=== PATIENT | female | born 1950 | race Caucasian/White ===

== ENCOUNTER 2021-03-27 14:49 | Outpatient (REF) | payer OTHER, MEDICARE, SELFPAY | END 2021-03-27 14:50 | disposition home or self-care (01) | LOC: HO.BBR 14:49 | PROVIDERS: PCP Internal Medicine; Visit Provider Internal Medicine Hematology & Oncology | DX: Z13.89 Encounter for screening for other disorder (principal) ==

== ENCOUNTER 2021-06-27 14:53 | Outpatient (REF) | payer MEDICARE, OTHER, SELFPAY | END 2021-06-27 14:54 | disposition home or self-care (01) | LOC: HO.BBR 14:53 | PROVIDERS: PCP Internal Medicine; Visit Provider Internal Medicine Hematology & Oncology | DX: Z13.89 Encounter for screening for other disorder (principal) ==

== ENCOUNTER 2024-05-04 13:03 | Outpatient (REF) | payer MEDICARE, OTHER, SELFPAY | END 2024-05-04 13:04 | disposition home or self-care (01) | LOC: HO.BBR 13:03 | PROVIDERS: PCP Internal Medicine; Visit Provider Nurse Practitioner Adult Health | DX: Z13.89 Encounter for screening for other disorder (principal) ==

== ENCOUNTER 2024-11-19 14:02 | Outpatient (REF) | payer MEDICARE, OTHER, SELFPAY | END 2024-11-19 14:03 | disposition home or self-care (01) | LOC: HO.BBR 14:02 | PROVIDERS: PCP Internal Medicine; Visit Provider Nurse Practitioner Adult Health | DX: Z13.89 Encounter for screening for other disorder (principal) ==

== ENCOUNTER 2025-02-25 13:49 | Outpatient (REF) | payer MEDICARE, OTHER, SELFPAY ==
--- OUTSIDE RECORDS SUMMARY | 2023-07-15 10:00 | XMS_ITS | Continuity of Care Document ---
Author Organization [facility] Address [address] [place] [address] Phone Care Team Providers Care Rotary Shear Operator Name Role Phone Asad DYER FACS RVT Heri BLOOM Unavailable Unavailable Allergies, Adverse Reactions, Alerts Substance Reaction Status Criticality No Known Allergies Active No Inform ation Medications Medication Instructions Dosage Effective Dates (start - stop) Status Comments Eliquis 5 mg tablet take 1 tablet by ora l route 2 times every day 5 MG - Active tramadol 50 mg tablet - Acti ve famotidine 40 mg tablet - Ac tive methylphenidate ER 27 mg tablet,extended release 24 hr - Active pramipexole 0.5 mg tablet - Active carbidopa 25 mg-levodopa 100 mg tablet - Active zolpidem 10 mg tablet - Acti ve amlodipine 5 mg tablet - Act bethanie Procedures Procedure Date Office/Outpt E&M Established 15 Mins Jun No Charge For Services Duplex Scan-extrem Veins; Uni/ Phleb Veins - Extrem - To Endovenous Laser, 1st Vein Endovenous Laser, 1st Vein Phleb Veins - Extrem - To Duplex Scan-extrem Veins; Uni/ 23 Endovenous Laser, 1st Vein Endovenous Laser, 1st Vein Endovenous laser vein addon Office/Outpt E&M Established 15 Mins Aug Duplex Scan-extrem Veins; Comp Advance Directives Directive Yes / No Effective Date File Name No Information Encounters Encounter Description Practice Location Reason(s) For Visit Diagnoses Date Provider Providers Copied on Encounter Office/Outpt E&M Established 15 Mins [facility], [address] [place] [address] [address] [place], [id number], [place] tel:[phone] [facility] Chronic venous hypertension (idiopathic) with other complications of bilateral lower extremity 3 Asad Hardin. [address] [place] [address], [place], [address], [place]. tel:[phone] Referring Provider: Rangel Aguilar MD S, [address] [place] [address], [address]. tel:[phone] [facility], [address] [place] [address] Dr Leal [address]Jonny [place], [id number], [place] tel:[phone] [facility] No Information 3 Asad Hardin. [address] [place] [address], [place], [address], [place]. tel:[phone] Referring Provider: Rangel Aguilar MD S, [address] [place] [address], [address]. tel:[phone] [facility], [address] [place] [address] Dr Leal [address]Jonny [place], [id number], [place] tel:[phone] [facility] Encounter for follow-up examination after completed treatment for conditions other than malignant neVaricose veins of left lower extremity with pain 3 Asad Hardin. [address] [place] [address], [place], [address], [place]. tel:[phone] Referring Provider: Rangel Aguilar MD S, [address] [place] [address], [address]. tel:[phone] [facility] MD GOLDMAN, [address] [place] [address] Dr Leal 1000[address] 1000Jonny [place], [id number], [place] tel:[phone] [facility] [place] [facility] [place] Varicose veins of left lower extremity with other complications Oct-0 3 Annita Hull. [address] [place] [address], [place], [place], [id number], [place]. tel:[phone] Referring Provider: Rangel Aguilar MD S, [address] [place] [address], [address]. tel:[phone] [facility] MD GOLDMAN, [address] [place] [address] Dr Leal [address], [place], [id number], [place] tel:[phone] [facility] [place] Varicose veins of left lower extremities w oth complications Sep-2 3 Asad DYER FACS T MERLE Hardin. [address] [place] [address], [place], [address], [place]. tel:[phone] Referring Provider: Rangel Aguilar MD S, [address] [place] [address], [address]. tel:[phone] [facility] MD GOLDMAN, [address] [place] [address] Dr Leal 1000[address] 1000Jonny [place], [id number], [place] tel:[phone] [facility] [place] Varicose veins of left lower extremities w ot complications Sep-2 3 Asad DYER FACS RVT MERLE Hardin. [address] [place] [address], [place], [address], [place]. tel:[phone] Referring Provider: Rangel Aguilar MD S, [address] [place] [address], [address]. tel:[phone] [facility] MD GOLDMAN, [address] [place] [address] [address], [place], [id number], [place] tel:[phone] [facility] [place] No Information 3 Asad Hardin. [address] [place] [address], [place], [address], [place]. tel:[phone] Referring Provider: Rangel Aguilar MD S, [address] [place] [address], [address]. tel:[phone] [facility], [address] [place] [address] [address], [place], [id number], [place] tel:[phone] [facility] [place] Varicose veins of right low extrm w oth complications 3 Annita Hull. [address] [place] [address], [place], [place], [id number], [place]. tel:[phone] Referring Provider: Rangel Aguilar MD S, [address] [place] [address], [facility] tel:[phone] [facility], [address] [place] [address] [address], [place], [id number], [place] tel:[phone] [facility] [place] Encntr for f/u exam aft trtmt for cond oth than malig neoplmVaricose veins of right lower extremities with pain 3 Asad Hardin. [address] [place] [address], [place], [address], [place]. tel:[phone] Referring Provider: Rangel Aguilar MD S, [address] [place] [address], [address]. tel:[phone] [facility], [address] [place] [address] [address]Jonny [place], [id number], [place] tel:[phone] [facility] [place] Varicose veins of right low extrm w oth complications 3 Asad ORRPage Hardin. [address] [place] [address], [place], [address], [place]. tel:[phone] Referring Provider: Rangel Aguilar MD S, [address] [place] [address], [address]. tel:[phone] [facility], [address] [place] [address] Dr Leal [address], [place], [id number], [place] tel:[phone] [facility] [place] Varicose veins of right low extrm w oth complications 3 Asad DYER FACS Page Hardin. [address] [place] [address], [place], [address], [place]. tel:[phone] Referring Provider: Rangel Aguilar MD S, [address] [place] [address], [facility] tel:[phone] Office/Outpt E&M Established 15 Mins [facility], [address] [place] [address] [address], [place], [id number], [place] tel:[phone] [facility] [place] Body mass index (BMI) 26.0-26.9, adultVenous insufficiency (chronic) (peripheral) 3 Asad DYER FACS Page Hardin. [address] [place] [address], [place], [address], [place]. tel:[phone] Referring Provider: Rangel Aguilar MD S, [address] [place] [address], [address]. tel:[phone] [facility], [address] [place] [address] [address], [place], [id number], [place] tel:[phone] [facility] [place] Varicose veins of bilateral lower extremities with painOther specified soft tissue disorders 2 Asad DYER FACS Page Hardin. [address] [place] [address], [place] [address], [place], [address], [place]. tel:[phone] Referring Provider: Rangel Aguilar MD S, [address] [facility], [place], [address]. tel:[phone] Family History Family Member Type Diagnosis Age At Onset No Information Payers Payer name Insurance type Covered libertarian ID Authorkristin marmolejo(s) Medicare PIYUSH RODRIGUEZ [id number] [facility] [id number] Social History Type Description Quantity Date Captured Comments Alcohol Use Details Caffeine Use Details Unknown Tobacco Use Status Never smoked tobacco 2022 Smoking Status Never smoker Non-Smoking Tobacco Use Details : No Details Available : No Details Available Sex Female Chief Complaint And Reason For Visit No Information Reason For Referral Reason For Referral No Information Plan Of Treatment Date Type Action Status Goal Tobacco cessation counseling completed History Of Present Illness Encounter Date Complaint History Of Prese nt Illness No Information Functional Status Date Functional Assessmen t No Information Instructions Date Instruction Additional Infor mation Continue compression stocking us e Related to Chrn Vns Hyprtnsn w/Compl (Pain Edema Swelling); BILAT Patient education booklet given Related to Chrn Vns Hyprtnsn w/Compl (Pain Edema Swelling); BILAT Dietary needs education Related to Body mass index [BMI] 26.0-26.9, adult Assessments Type Assessment Date assessment Chronic venous hyper tension (idiopathic) with other complications of bilateral lower extremity Patient Care Teams Name Effective Dates (start - stop) Status Members No Information
--- OUTSIDE RECORDS SUMMARY | 2025-02-25 13:54 | XMS_ITS | Patient Health Record ---
Author [facility] Address [address] [address] Care Team Providers Care Pre Press Operator Name Role Phone Rangel Hendricks MD Primary Care Provider Adal Jefferson Unavailable [phone] Allergies No Known Allergies Reason For Referral No Information Medications Medication SIG (Take, Route, Frequency, Duration) Notes Start Date End Date Status Vivelle Not-Taking Progesterone Milled as directed Not-Taking traMADol HCl 50 MG 1 tablet as needed Orally Once a day Active Pramipexole Dihydrochloride 0.5 MG 1 tablet Orally Once a day Active Zolpidem Tartrate Ac tive Famotidine 40 MG 1 tablet Orally Once a day Active Mirapex 1 MG 1 tablet Orally Thre e times a day; Duration: 30 day(s) Not-Taking Ciprofloxacin-dexAMETHasone 0.3-0.1 % Otic; Duration: 7 Days Active Losartan Potassium 50 MG 1 tablet Orally Once a day Active Social History Tobacco Use: Social History Observation Description Date Details (start date - stop date) Former Smoker NA - NA Tobacco Use/Smoking Question Answer Notes Are you a: former smoker Additional Findings: Tobacco Non-User Current no n-smoker Tobacco use other than smoking: Question Answer Notes Are you an other tobacco user? No Problems Problem Type SNOMED Code ICD Code Onset Dates Problem Status W/U Status Risk Notes Problem Plantar wart (B07.0) Active confirmed Vital Signs Height 5ft 6in in 06/25/2024 Weight 165 lbs 06/25/2024 BMI 26.63 kg/m2 06/25/2024 Procedures Procedure Date Ordered Date Performed Result Body Sit e 06389-Ezvu Destruction, 1-14 05/28/2024 N/A 38824-Vfkx Destruction, 09-0806/11/2024 N/A 16207-Proo Destruction, 09-0806/25/2024 N/A Encounters Encounter Location Date Provider Diagnosis [address] [address] 05/28/2024 Adal Wen Right foot pain M79.671 and Plantar wart B07.[address] [address] 06/11/2024 Adal Behzad Right foot pain M79.671 and Plantar wart B07.[address] [address] 06/25/2024 Adal Behzad Right foot pain M79.671 and Plantar wart B07.[address] [address] 05/28/2024 Adal Behzad [address] [address] 05/29/2024 Adal Behzad Assessments Encounter Date Diagnosis (ICD Code) Assessment Notes Treatment Notes Treatment Clinical Notes Section Notes 05/28/2024 Right foot pain (ICD-10 - M79.671) 06/11/2024 Plantar wart (ICD-10 - B07.0) 06/11/2024 Right foot pain (ICD-10 - M79.671) 06/25/2024 Right foot pain (ICD-10 - M79.671) 05/28/2024 Plantar wart (ICD-10 - B07.0) 06/25/2024 Plantar wart (ICD-10 - B07.0) Plan Of Treatment Pending Test Test Name Order Date 63211-Zafb Destruction, 09-0805/28/2024 31779-Ebij Destruction, 09-0806/11/2024 50959-Rkzw Destruction, 09-0806/25/2024 Insurance Providers Payer Name Payer Address Payer Phone Subscriber Number Group Number Insured Name Patient Relationship to Insured Coverage Start Date Coverage End Date Medicare National [employer] [address] [place] [address] [id number] Sylvia Celis Self - patient is the insured [facility] [address] [place] [address] [phone] [id number] Olu Celist Self - patient is the insured Medical (General) History Medical History History ICD Code asthma back, hip, knee pain cataracts sciatica chicken pox measles mumps headaches/migraines Warts Surgical History Surgery Date(Month/Year) rotator cuff tear repair ovarian surgery ear surgery knee surgery appendectomy
--- OUTSIDE RECORDS SUMMARY | 2025-02-25 13:54 | XMS_ITS | Patient Health Record ---
Author Organization [facility] Address [address] [place] [address] Care Team Providers Care Gyn Physician Name Role Phone FLY MANUEL M.D. Primary Care Provider Liz Moses Unavailable [phone] Allergies No Known Allergies Reason For Referral No Information Medications Medication SIG (Take, Route, Frequency, Duration) Notes Start Date End Date Status traMADol HCl 50 MG 1-3 tablet as needed Orally PRN RLS Active Pramipexole Dihydrochloride 0.5 MG Oral; Duration: 90 Active amLODIPine Besylate 5 MG 1 tablet Orally Once a day Active Famotidine 40 MG Oral; Duration: 30 Active Social History Tobacco Use: Social History Observation Description Date Details (start date - stop date) Former Smoker NA - NA Tobacco Use/Smoking Question Answer Notes Are you a former smoker How long has it been since you last smoked? > 10 years Alcohol Screen (Audit-C) Question Answer Notes Did you have a drink contain ing alcohol in the past year? Yes How often did you have a dri nk containing alcohol in the past year? 4 or more times a week (4 points) How many drinks did you have on a typical day when you were drinking in the past year? 1 or 2 drinks (0 point) Points 4 Interpretation Positive Problems Problem Type SNOMED Code ICD Code Onset Dates Problem Status W/U Status Risk Notes Problem Menopause (747330446) Menopausal and female climacteric states (N95.1) Active confirmed Problem Hemochromatosis (891965344) Other hemochromatosis (E83.118) Active confirmed Problem Phlebitis and thrombophlebitis of unspecified site (I80.9) Active confirmed Problem Noninflammatory disorder of the female genital organs (3286114) Other specified noninflammatory disorders of cervix uteri (N88.8) Active confirmed Problem Menopause (847477573) Menopausal and female climacteric states (N95.1) Active confirmed Problem Menopausal symptom (58930000) Symptomatic menopausal or female climacteric states (627.2) Active confirmed Major Problem Gynecological examination normal (585749564143026) Routine gynecological examination (V72.31) Active confirmed Problem Screening for malignant neoplasm of colon (602251751) Special screening for malignant neoplasms, colon (V76.51) Active confirmed Major Problem Hemochromatosis (907330761) Other hemochromatosis (275.03) Active confirmed Major Plan Of Treatment Pending Test Test Name Order Date MAMMOGRAM, SCREENING 09/19/2020 MAMMOGRAM, SCREENING 01/01/2022 MAMMOGRAM, SCREENING 11/24/2014 MAMMOGRAM, SCREENING 04/02/2016 Urinalysis 04/02/2016 THIN PREP,HPV,GINO IF HPV+ (>29YR)(DIAG) 09/23/2018 BONE DENSITY 09/19/2020 MM Digital Mammo Screening 09/19/2020 MM Digital Mammo Screening 01/01/2022 Insurance Providers Payer Name Payer Address Payer Phone Subscriber Number Group Number Insured Name Patient Relationship to Insured Coverage Start Date Coverage End Date MEDICARE [address] [place], [place] [id number] EVA DURANT Self - patient is the insured [facility] [address] [place] [address] [id number] EVA DURANT Self - patient is the insured Medical (General) History Medical History History ICD Code Menopausal and female climacteric states N95.1 Hormone replacement therapy (postmenopau amarilis) Z79.890 Unspecified abnormal cytological finding s in specimens from cervix uteri R87.619 Abnormal findings on diagnostic imaging of other specified body structures R93.8 Hormone replacement therapy (postmenopau amarilis) Z79.890 Polyp of corpus uteri N84.0 Acute sinusitis, unspecified J01.90 Other specified noninflammatory disorder s of cervix uteri N88.8 Phlebitis and thrombophlebitis of unspec ified site I80.9 Other hemochromatosis E83.118 Surgical History Surgery Date(Month/Year) Colonoscopy Left Tibia Fracture ECC, Hysteroscopy Truclear Polypectomy, D&C 06/2016 Hospitalization History Reason Date(Month/Year) 2 Vaginal Deliveries See Surgical Hx
== END 2025-02-25 13:50 | disposition home or self-care (01) ==
LOC: HO.BBR 13:49
PROVIDERS: PCP Internal Medicine; Visit Provider Nurse Practitioner Adult Health
DX: Z13.89 Encounter for screening for other disorder (principal)

== ENCOUNTER 2025-05-31 11:55 | Outpatient (REF) | payer MEDICARE, OTHER, SELFPAY ==
--- OUTSIDE RECORDS SUMMARY | 2025-01-04 07:40 | XMS_ITS ---
Author Organization [facility] Address [address] [place], [place] [id number] Care Team Providers Care Oncology Consultant Name Role Phone FLY MANUEL Primary Care Provider [phone] MELI TOBAR [phone] REASON FOR VISIT PG/27/barking cough Encounters Encounter Location Date Provider Diagnosis [address] [address] 01/04/2025 MELI TOBAR PLAN OF TREATMENT Next Appt Details Provider Name:NURSING CAREN Kemp, 06/06/2026 01:00:00 PM, [address] [place] [address], [phone], Provider Name:FLY Goa, 06/06/2026 01:30:00 PM, [address] [place] [address], [phone],
--- OUTSIDE RECORDS SUMMARY | 2025-05-19 11:00 | XMS_ITS ---
Author Organization [facility] Address [address] [place], [place] [id number] Care Team Providers Care Home Appliances Mechanic Name Role Phone FLY MANUEL Primary Care Provider URI EDMONDSON [phone] REASON FOR VISIT N/27/AWV Encounters Encounter Location Date Provider Diagnosis [address] [address] 05/19/2025 NURSING DELVIS PLAN OF TREATMENT Next Appt Details Provider Name:URI Kemp, 06/06/2026 01:00:00 PM, [address] [place] [address], [phone], Provider Name:FLY Gao, 06/06/2026 01:30:00 PM, [address] [place] [address], [phone],
--- OUTSIDE RECORDS SUMMARY | 2025-05-19 11:30 | XMS_ITS ---
Author Organization [facility] Address [address] [place], [place] [id number] Care Team Providers Care Feedmobile Driver Name Role Phone FLY MANUEL Primary Care Provider [phone] ALLERGIES Allergen (clinical drug ingredient) Drug/Non Drug Allergy documented on EMR Reaction Allergy Type Onset Date Status amoxicillin Amoxicillin diarrhea Drug Allergy Act bethanie REASON FOR VISIT AWV, Patient denies: Covid19 symptoms, known exposure, pending results MEDICATIONS Medication SIG (Take, Route, Frequency, Duration) Notes Start Date End Date Status Montelukast Sodium 10 MG 1 tablet Orally Once a day for 30 day(s) 05/19/2025 Active Losartan Potassium 50 MG 1 tablet orally Once a day Active Famotidine 40 MG 1 tablet orally Once a day Active traMADol HCl 50 MG 1 tab(s) orally TID Active Pramipexole Dihydrochloride 0.5 MG 2 tab Orally Once a day as needed for restless leg Active Budesonide-Formoterol Fumarate 80-4.5 MCG/ACT as directed Inhalation Active Zolpidem Tartrate 10 MG 1/2 - 1 tab Oral ly at bedtime 10/02/2024 Active SOCIAL HISTORY Tobacco Use: Social History Observation Description Date Details (start date - stop date) Former Smoker NA - NA Sex Assigned At : Social History Observation Description Sex Assigned At Unknown Smoking Question Answer Notes Are you a: former smoker Section Notes: quit smoking age mid 20's VITAL SIGNS Height 65.25 in 05/19/2025 Weight 168.2 lbs 05/19/2025 Blood pressure systolic 134 mm Hg 05/19/20 25 Blood pressure diastolic 76 mm Hg 025 BMI 27.77 kg/m2 05/19/2025 Encounters Encounter Location Date Provider Diagnosis [facility] [address] [place] [address] 05/19/2025 FLY MANUEL Essential (primary) hypertension I10 ; Post-nasal drip R09.82 ; Left wrist pain M25.532 ; Osteoarthritis M19.90 ; Restless leg syndrome G25.81 and Insomnia G47.00 ASSESSMENTS Encounter Date Diagnosis Assessment Notes Treatment Notes Treatment Clinical Notes Section Notes 05/19/2025 Essential (primary) hypertension (ICD-10 - I10) bp is good cojt rx..low salt diet and exercise 05/19/2025 Post-nasal drip (ICD-10 - R09.82) rx sent..call INB 1 month 05/19/2025 Left wrist pain (ICD-10 - M25.532) check xray and go from there 05/19/2025 Osteoarthritis (ICD-10 - M19.90) 05/19/2025 Restless leg syndrome (ICD-10 - G25.81) 05/19/2025 Insomnia (ICD-10 - G47.00) cont rx.. clal if issues 05/19/2025 Other rev;d sbe and safety. PLAN OF TREATMENT Medication Medication Name Sig Start Date Stop Date Notes Montelukast Sodium 10 MG 1 tablet Orally Once a day for 30 day(s) 05/19/2025 Losartan Potassium 50 MG 1 tablet orally Once a day Famotidine 40 MG 1 tablet orally Once a day traMADol HCl 50 MG 1 tab(s) orally TID Pramipexole Dihydrochloride 0.5 MG 2 tab Orally Once a day as needed for restless leg Budesonide-Formoterol Fumara te 80-4.5 MCG/ACT as directed Inhalation Zolpidem Tartrate 10 MG 1/2 - 1 tab Oral ly at bedtime 10/02/2024 Treatment Notes Assessment Notes Essential (primary) hypertension bp is g ood cojt rx..low salt diet and exercise Post-nasal drip rx sent..call INB 1 month Left wrist pain check xray and go fr om there Insomnia cont rx.. clal if is sues Other rev;d sbe and safety . Next Appt Details Follow Up: 1 Year 45 min cpx ,,,labs today..flu shot and pcv 20 today, Reason: Provider Name:NURSING CAREN Kemp 06/06/2026 01:00:00 PM, [address] [place], [address], Provider Name:FLY Gao, 06/06/2026 01:30:00 PM, [address] [place], [address], Progress Notes * Examination Category Sub-Category Detail Notes Category Not es General Examination HEENT: nose is boggy Neck: no mass, no carotid bruit Heart: RSR, normal S1S2, no murmurs, clicks or rubs Lungs: clear to auscultatio n, no wheezes Abdomen: soft, non tender/non distended, no masses palpated, no hepatosplenomegaly Extremities: no clubbing , cyanos is, or edema General Appearance no apparent distress , pleasant Skin: normal, no rash, monica ign appearing moles Neuro DTRs 1-2+ in all 4 e xtremities, CN 2-12 intact Peripheral pulses: 2+, bilaterally syme trical Lymphatics No supraclavicular n odes, no cervical adenopathy Psych: affect normal Musculoskeletal left wrist OA change s History and Physical Notes * HPI (History of Present Illness) Category Sub-Category Detail Notes Category Not es General here for eval..left wrist pain for 3-4 weeks..no trauma..hurt swith mvmt..no redness or swelling....for 2-3 months ++ post nasal drip and constant need t clear her throat..chest feels fine..no sob or wheeze.. wants a bp check today Depression Screening PHQ-2 (2015 Edition) Little interest or pleasure in doing things?: Not at all Feeling down, depressed, or hopeless?: N ot at all Total Score: 0
--- OUTSIDE RECORDS SUMMARY | 2025-05-19 12:00 | XMS_ITS ---
Author Organization [facility] Address [address] [place], [place] [address] Care Team Providers Care Chief Medical Technologist Name Role Phone FLY MANUEL Primary Care Provider URI EDMONDSON [phone] REASON FOR VISIT N/27/flu shot and pcv 20 today IMMUNIZATIONS Vaccine Route Administration Date Status Comme nts Influenza, Fluzone HD 65+ IM Intramuscular 05/19/2025 Admi nistered [id number] IM Intramuscular 05/19/2025 Administered Encounters Encounter Location Date Provider Diagnosis [address] [address] 05/19/2025 NURSING [facility] Encounter for immunization Z23 ASSESSMENTS Encounter Date Diagnosis Assessment Notes Treatment Notes Treatment Clinical Notes Section Notes 05/19/2025 Encounter for immunization (ICD-10 - Z23) HD Influenza vaccine administered. Patient counseled and VIS sheet given. PLAN OF TREATMENT Treatment Notes Assessment Notes Encounter for immunization HD Influenza vaccine administered. Patient counseled and VIS sheet given. Next Appt Details Follow Up: prn, Reason: Provider Name:URI Kemp, 06/06/2026 01:00:00 PM, [address] [place] [address], [phone], Provider Name:FLY Gao, 06/06/2026 01:30:00 PM, [address] [place] [address], [phone],
--- OUTSIDE RECORDS SUMMARY | 2025-05-20 05:36 | XMS_ITS ---
Author Organization [facility] Address [address] [place], [place] [address] Care Team Providers Care Waxer Tender Name Role Phone FLY MANUEL Primary Care Provider [phone] Encounters Encounter Location Date Provider Diagnosis [address] [address] 05/20/2025 FLY MANUEL PLAN OF TREATMENT Next Appt Details Provider Name:NURSING CAREN Kemp, 06/06/2026 01:00:00 PM, [address] [place] [address], [phone], Provider Name:FLY Gao, 06/06/2026 01:30:00 PM, [address] [place] [address], [phone],
--- OUTSIDE RECORDS SUMMARY | 2025-05-31 14:27 | XMS_ITS | Patient Health Record ---
Author Organization [facility] Address [address] [place] [address] Care Team Providers Care Ampoule Inspector Name Role Phone Rangel Hendricks MD Primary Care Provider UnavailAdal Keith Unavailable [phone] Allergies No Known Allergies Reason For Referral [...] W/U Status Risk Notes Problem Plantar wart (77790106) Plantar wart (B07.0) Active confirmed Vital Signs Height 5ft 6in in 06/25/2024 Weight 165 lbs 06/25/2024 BMI 26.63 kg/m2 06/25/2024 Procedures Procedure Date Ordered Date Performed Result Body Sit e 76944-Fxhx Destruction, 1-06/11/2024 N/A 34333-Rdhe Destruction, -06/25/2024 N/A Encounters Encounter Location Date Provider Diagnosis [facility] [place] [address] 06/11/2024 Adal Wen Right foot pain M79.671 and Plantar wart B07.[address] [facility] [address] 06/25/2024 Adal Wen Right foot pain M79.671 and Plantar wart B07.0 Assessments Encounter Date Diagnosis (ICD Code) Assessment Notes Treatment Notes Treatment Clinical Notes Section Notes 06/11/2024 Plantar wart (ICD-10 - B07.0) 06/11/2024 Right foot pain (ICD-10 - M79.671) 06/25/2024 Right foot pain (ICD-10 - M79.671) 06/25/2024 Plantar wart (ICD-10 - B07.0) Plan Of Treatment Pending Test Test Name Order Date 63779-Ftrd Destruction, -06/11/2024 19276-Pfgl Destruction, -06/25/2024 27630-Agzq Destruction, -05/28/2024 Insurance Providers Payer Name Payer Address Payer Phone Subscriber Number Group Number Insured Name Patient Relationship to Insured Coverage Start Date Coverage End Date Medicare National [employer] [address] [place] [address] [id number] Sylvia Celis Self - patient is the insured [facility] [address] [place] [address] [phone] [id number] Sylvia Celis Self - patient is the insured Medical (General) History Medical History History ICD Code asthma back, hip, knee pain cataracts sciatica chicken pox measles mumps headaches/migraines Warts Surgical History Surgery Date(Month/Year) rotator cuff tear repair ovarian surgery ear surgery knee surgery appendectomy
--- OUTSIDE RECORDS SUMMARY | 2025-05-31 14:27 | XMS_ITS | Patient Health Record ---
Author Organization [facility] Address [address] [place], [place] [address] Care Team Providers Care Pattern Storage Clerk Name Role Phone FLY MANUEL Primary Care Provider WILSEY, NURSING Unavailable [phone] CHERIE BLOUNT Unavailable [phone] NARINDER CROW Unavailable [phone] JAMIN ALVARADO Unavailable [phone] MELI TOBAR Unavailable [phone] ALLERGIES Allergen (clinical drug ingredient) Drug/Non Drug Allergy documented on EMR Reaction Allergy Type Onset Date Status amoxicillin Amoxicillin diarrhea Drug Allergy Act bethanie REASON FOR REFERRAL Reason dyspnea with activit y Diagnosis 1 SOB (shortness of br eath) (R06.02) Referral Organization [facility] maurisio Referring Provider First Name CHERIE Referring Provider Last Name MINE Referring Provider Speciality Physician Ocularist Referred Provider CULLEN BARRERA Referred Provider Specialty Critical Car e (Intensivists) General Notes Damari HUMPHREY Schedul ing 06/16/2024 10:41:53 AM > PT SCHED W/ DR MAR BARRERA. PEÑA. FAX: [phone], Julia HUMPHREY Referrals 06/16/2024 10:54:41 AM > No Referral Required with [facility] and [facility] Medicare Supplement Referral Priority Routine Referral Appointment Date 06/19/2024 Reason (FAXED 05/20/2025) p franky esched ov dr dennys botello for dx thumb and wrist arthritis Referral Organization [facility] maurisio Referring Provider First Name FLY Referring Provider Last Name MAR Referring Provider Speciality Internal M edicine Referred Provider DENNYS BOTELLO General Notes Faith HUMPHREY [place] 09:43:24 AM > reji botello for dx thumb and wrist arthritis, Faith HUMPHREY PIYUSH 05/20/2025 09:43:28 AM > referral faxed with recent note Referral Priority Routine MEDICATIONS Medication SIG (Take, Route, Frequency, Duration) Notes Start Date End Date Status traMADol HCl 50 MG 1 tab(s) orally TID Active Pramipexole Dihydrochloride 0.5 MG 2 tab Orally Once a day as needed for restless leg Active Budesonide-Formoterol Fumarate 80-4.5 MCG/ACT as directed Inhalation Active Montelukast Sodium 10 MG 1 tablet Orally Once a day for 30 day(s) 05/19/2025 Active Losartan Potassium 50 MG 1 tablet orally Once a day Active Famotidine 40 MG 1 tablet orally Once a day Active Zolpidem Tartrate 10 MG 1/2 - 1 tab Oral ly at bedtime 10/02/2024 Active IMMUNIZATIONS Vaccine Route Administration Date Status Comme nts Influenza, Fluzone HD 65+ Unknown 06/25/2018 Administer ed Influenza, Fluzone HD 65+ Unknown 05/15/2019 Administer ed Influenza, Fluzone HD 65+ IM Intramuscular 06/13/2021 Admi nistered Influenza, Fluzone HD 65+ IM Intramuscular 06/04/2022 Admi nistered Influenza, Fluzone HD 65+ IM Intramuscular 05/25/2024 Admi nistered Influenza, Fluzone HD 65+ IM Intramuscular 05/19/2025 Admi nistered Pfizer COVID-19,mRNA, LNP-S, PF, 30mcg/0.3mL dose IM Intramuscular 12/28/2021 Administered Pfizer COVID-19,mRNA, LNP-S, PF, 30mcg/0.3mL dose IM Intramuscular 05/09/2022 Administered Pneumococcal Prevnar 13 IM Intramuscular 02/19/2018 Admini stered Pneumococcal, PPV 23 IM Intramuscular 03/02/2019 Administe red [id number] IM Intramuscular 05/19/2025 Administered SOCIAL HISTORY Tobacco Use: Social History Observation Description Date Details (start date - stop date) Former Smoker NA - NA Sex Assigned At : Social History Observation Description Sex Assigned At Unknown Smoking Question Answer Notes Are you a: former smoker Alcohol Screen Question Answer Notes Did you have a drink contain ing alcohol in the past year? Yes How often did you have a dri nk containing alcohol in the past year? Four or more times a week (4 points) How many drinks did you have on a tpical day when you were drinking in the past year? 1 or 2 (0 points) How often did you have six o r more drinks on one occassion in the past year? Never (0 points) Points 4 Interpretation Positive Section Notes: quit smoking age mid 20's quit smoking age mid 20's quit smoking age mid 20's quit smoking age mid 20's quit smoking age mid 20's quit smoking age mid 20's quit smoking age mid 20's quit smoking age mid 20's quit smoking age mid 20's quit smoking age mid 20's quit smoking age mid 20's quit smoking age mid 20's quit smoking age mid 20's quit smoking age mid 20's quit smoking age mid 20's quit smoking age mid 20's quit smoking age mid 20's quit smoking age mid 20's PROBLEMS Problem Type ICD Code Onset Dates Problem Status W/U Status Risk SNOMED Code Notes Problem Exercise-induced bronchospasm (493.81) Active confirmed Exercise-induce d asthma (12452664) Problem Insomnia (G47.00) Active confirmed Inso mnia (265280272) Problem Vitamin D deficiency (E55.9) Active confirmed 97963875 Problem Osteoarthritis (M19.90) Active confirmed Osteoarthritis (717706906) Problem Essential (primary) hypertension (I10) Active confirmed 37878376 Problem Restless leg syndrome (G25.81) Active confirmed Restless l egs syndrome (93244867) Problem Hereditary hemochromatosis (E83.110) Active confirmed Hereditary hemochromatosis (55284964) Problem Gastroesophageal reflux disease without esophagitis (K21.9) Active confirmed 410406501 Problem Attention deficit hyperactivity disorder (ADHD), 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 confirmed 22337808 Problem Hemochromatosis (E83.119) Active confirmed Hemochromatosis (507587811) Problem Acute non-recurrent maxillary sinusitis (J01.00) Active confirmed 06475951 Problem Irritable bowel syndrome, unspecified type (K58.9) Active confirmed 10077993 Problem Elevated cholesterol (E78.00) Active confirmed Pure hypercholesterolemia (362958544) Problem Grief reaction (F43.21) Active confirmed 254685286 VITAL SIGNS Blood pressure diastolic 76 mm Hg 05/19/2025 Height 65.25 in 05/19/2025 Blood pressure systolic 134 mm Hg 05/19/2025 Weight 168.2 lbs 05/19/2025 BMI 27.77 kg/m2 05/19/2025 Encounters Encounter Location Date Provider Diagnosis [address] [address] 06/08/2024 CHERIE BLOUNT SOB (shortness of breath) R06.[address] [address] 06/08/2024 FLY MANUEL [place] [phone] 06/23/2024 CHERIE BLOUNT [address] [address] 06/23/2024 FLY MANUEL [place] [phone] 07/15/2024 [address]ER[address] [address] 07/16/2024 FLY MANUEL Liver mass R16.[address] [address] 09/10/2024 FLY MANUEL [address] [address] 09/10/2024 NARINDER PULITO Acute non-recurrent maxillary sinusitis J01.00 and Chest tightness R07.[address] [address] 10/01/2024 FLY MANUEL Insomnia G47.[address] [address] 10/02/2024 FLY MANUEL [address] [address] 11/23/2024 FLY MANUEL [address] [address] 11/23/2024 FLY MANUEL [address] [address] 01/04/2025 JAMIN ALVARADO [address] [address] 01/04/2025 JAMIN ALVARADO URI with cough and congestion J06.9 [place] [phone] 01/04/2025 MELI TOBAR [place] [phone] 05/19/2025 NURSING [place] [address] 05/19/2025 FLY MANUEL Essential (primary) hypertension I10 ; Post-nasal drip R09.82 ; Left wrist pain M25.532 ; Osteoarthritis M19.90 ; Restless leg syndrome G25.81 and Insomnia G47.00 [place] [phone] 05/19/2025 NURSING WILSEY Encounter for immunization Z23 [place] [phone] 05/20/2025 FLY MANUEL ASSESSMENTS Encounter Date Diagnosis Assessment Notes Treatment Notes Treatment Clinical Notes Section Notes 05/19/2025 Encounter for immunization (ICD-10 - Z23) HD Influenza vaccine administered. Patient counseled and VIS sheet given. 01/04/2025 URI with cough and congestion (ICD-10 - J06.9) Risks/benefits of medication reviewed. If not improved in 3 days knows to follow up 10/01/2024 Insomnia (ICD-10 - G47.00) 09/10/2024 Acute non-recurrent maxillary sinusitis (ICD-10 - J01.00) Given duration of symptoms will treat for bacterial etiology. , side effects, risks, and benefits of medication reviewed, Pt knows to follow up immediately if symptoms worsen, otherwise will follow up if no improvement. 09/10/2024 Chest tightness (ICD-10 - R07.89) Patient declined oral steroid. , Pt knows to follow up immediately if symptoms worsen, otherwise will follow up if no improvement. 07/16/2024 Liver mass (ICD-10 - R16.0) 06/08/2024 SOB (shortness of breath) (ICD-10 - R06.02) 05/19/2025 Essential (primary) hypertension (ICD-10 - I10) [...] issues 05/19/2025 Other rev;d sbe and safety. 09/10/2024 Other I am seeing the patient under the supervision of the co-signing physician. The physician was available for consultation at the time of the office visit. 9 minutes spent face to face with patient 01/04/2025 Other I am seeing the patient under the supervision of the co-signing physician. The physician was available for consultation at the time of the office visit. PLAN OF TREATMENT Pending Test Test Name Order Date URINALYSIS WITH REFLEX MICROSCOPIC 03/17 Future Test Test Name Order Date STREPTOCOCCUS GROUP A AG, WITH REFLEX TO CULTURE 12/11/2022 LIPID PROFILE 04/23/2023 CBC W/ AUTOMATED DIFF 04/23/2023 COMP. METABOLIC 04/23/2023 Urine Microalbumin(Creat/MALB Ratio) TSH WITH REFLEX TO FT4 04/23/2023 Urinalysis w/ Reflex Culture 04/23/2023 Next Appt Details Provider Name:URI Kemp, 06/06/2026 01:00:00 PM, [address] [place] [address], [phone], Provider Name:FLY Gao, 06/06/2026 01:30:00 PM, [address] [place] [address], [phone], Insurance Providers Payer Name Payer Address Payer Phone Subscriber Number Group Number Insured Name Patient Relationship to Insured Coverage Start Date Coverage End Date MEDICARE [employer] [address] [place] [address] [phone] [id number] EVA CELIS Self - patient is the insured [address] [facility] [address] [place], [place] [id number] EVA CELIS Self - patient is the insured 5 MEDICAL (GENERAL) HISTORY Medical History History ICD Code hemochromotosis Migraines hypertension raynauds disease restless leg syndrome colon 2016..adenoma..2020 normal due aga in 2025 david HCP: Dutch Celis Son [phone] exercise induced asthma Surgical History Surgery Date(Month/Year) laser for vein removal lower extremities R knee 12/11/18 bilateral cataract surgery ear canal cysts removed 1989 laprscopic endometriosis left ovary removed and appendectomy 1983 right rotator cuff repair 2002
--- OUTSIDE RECORDS SUMMARY | 2025-05-31 14:27 | XMS_ITS | Encounter Summary ---
Author Organization [facility] Address [address] [place] [address] Phone Care Team Providers Care Rigging Engineer Name Role Phone Rangel Aguilar MD Primary Care Provider Encounter Details Date Type Department Care Team ([facility] st Contact Info) Description 05/28/2019 Procedure Pass [facility] [address] [place] [address] Social History Tobacco Use Types Packs/Day Years Used Date Smoking Tobacco: Never Assessed Comments Unknown Sex and Gender Information Value Date Recorded Sex Assigned at Female 04/30/2019 8:27 AM EDT Legal Sex Female 8:16 AM EDT Gender Identity Female 04/30/2019 8:27 AM EDT Sexual Orientation Straight 04/30/2019 8: 27 AM EDT documented as of this encounter Plan of Treatment Not on file documented as of this encounter Visit Diagnoses Not on filedocumented in this encounter Care Teams Rigging Engineer Relationship Specialty Start Date End Date Rangel Aguilar MD [address] [place] [address] [address] [place] [address] PCP - General Internal Medicine 04/30/19 documented as of this encounter Additional Source Comments The information contained in this document represents components of the legal health record. It is not the complete legal health record.[facility]
--- OUTSIDE RECORDS SUMMARY | 2025-05-31 14:27 | XMS_ITS | Patient Health Record ---
Author Organization [facility] Address [address] [place] [address] Care Team Providers Care Epoxy Specialist Name Role Phone FLY MANUEL M.D. Primary Care Provider Liz Moses Unavailable [phone] Allergies No Known Allergies Reason For Referral [...] Status W/U Status Risk Notes Problem Menopause (740047644) Menopausal and female climacteric states (N95.1) Active confirmed Problem Hemochromatosis (863672343) Other hemochromatosis (E83.118) Active confirmed Problem Phlebitis and thrombophlebitis of unspecified site (I80.9) Active confirmed Problem Noninflammatory disorder of the female genital organs (9199300) Other specified noninflammatory disorders of cervix uteri (N88.8) Active confirmed Problem Menopause (893791452) Menopausal and female climacteric states (N95.1) Active confirmed Problem Menopausal symptom (18655943) Symptomatic menopausal or female climacteric states (627.2) Active confirmed Major Problem Gynecological examination normal (940906250486621) Routine gynecological examination (V72.31) Active confirmed Problem Screening for malignant neoplasm of colon (891946773) Special screening for malignant neoplasms, colon (V76.51) Active confirmed Major Problem Hemochromatosis (115116551) Other hemochromatosis (275.03) Active confirmed Major Plan Of Treatment Pending Test Test Name Order Date MAMMOGRAM, SCREENING 09/19/2020 MAMMOGRAM, SCREENING 01/01/2022 MAMMOGRAM, SCREENING 04/02/2016 MAMMOGRAM, SCREENING 11/24/2014 Urinalysis 04/02/2016 THIN PREP,HPV,GINO IF HPV+ (>29YR)(DIAG) 09/23/2018 BONE DENSITY 09/19/2020 MM Digital Mammo Screening 09/19/2020 MM Digital Mammo Screening 01/01/2022 Insurance Providers Payer Name Payer Address Payer Phone Subscriber Number Group Number Insured Name Patient Relationship to Insured Coverage Start Date Coverage End Date MEDICARE [address] [place], [place] [id number] EVA DURANT Self - patient is the insured [facility] [address] [place] [address] [id number] EVA DURANT Self - patient is [...]
--- OUTSIDE RECORDS SUMMARY | 2025-05-31 14:28 | XMS_ITS | Clinical Summary ---
Author Organization [facility] Address [address] [place] [address] Phone Care Team Providers Care Parts Representative Name Role Phone Rangel Aguilar MD Primary Care Provider Allergies No known active allergies Medications traMADol (ULTRAM) 50 mg tablet Take 50 mg by mouth every 6 (six) hours as needed for pain (specific location in comments). Active buPROPion (WELLBUTRIN XL) 300 MG ER 24 hr tablet Take 300 mg by mouth daily. Active amLODIPine (NORVASC) 5 MG tablet Take 5 mg by mouth daily. Active clonazePAM (KLONOPIN) 0.5 MG tablet Take 0.5 mg by mouth 2 (two) times a day as needed for anxiety. Active pramipexole (MIRAPEX) 0.25 MG tablet Take 0.25 mg by mouth 4 (four) times a day. Active Social History Tobacco Use Types Packs/Day Years Used Date Smoking Tobacco: Former Cigarettes Q uit: 1979 Smokeless Tobacco: Never Alcohol Use Standard Drinks/Week Comments Yes 0 (1 standard drink = 0.6 oz pur e alcohol) nightly wine Education Answer Date Recorded Are you interested in more education? Not on jr e 12/21/2022 Are you concerned about learning? Not on file 12/21/2022 No 12/21/2022 No 12/21/2022 Digital Access Answer Date Recorded No 01/19/2023 No 01/19/2023 No 01/19/2023 Reliable internet access at home? Not on file 01/19/2023 Device with a working camera? Not on file Comments Unknown Sex and Gender Information Value Date Recorded Sex Assigned at Female 04/30/2019 8:27 AM EDT Legal Sex Female 8:16 AM EDT Gender Identity Female 04/30/2019 8:27 AM EDT Sexual Orientation Straight 04/30/2019 8: 27 AM EDT Last Filed Vital Signs Vital Sign Reading Time Taken Comments Blood Pressure 151/83 11/05/2019 11:11 AM EDT Pulse 61 11/05/2019 11:11 AM EDT Temperature - - Respiratory Rate - - Oxygen Saturation - - Inhaled Oxygen Concentration - - Weight 74.8 kg (165 lb) 05/28/2019 12:43 PM EDT Height 170.2 cm (5' 7 ) 05/28/2019 12:43 PM EDT Body Mass Index 25.84 05/28/2019 12:43 PM EDT Plan of Treatment Health Maintenance Due Date Last Done Comments Adult Td,Tdap Booster 1952 LIPID PANEL 1952 DEPRESSION SCREENING 1964 SMOKING Hx and SMOKELESS TOBACCO SCREENING 1965 HEPATITIS C SCREENING 1970 MAMMOGRAM 1992 COLOGUARD 1997 COLONOSCOPY 1997 COLORECTAL CANCER SCREENING 1997 FIT TEST 1997 FOBT 1997 SIGMOIDOSCOPY 1997 VIRTUAL COLONOSCOPY 1997 PNEUMOCOCCAL VACCINES (50+ years) (1 of 1 - PCV) 2002 ZOSTER VACCINES (1 of 2) 2002 OSTEOPOROSIS SCREENING INITIAL (ONE-TIME) 2017 INFLUENZA VACCINE (#1) 2025 , 05/27/2020, 05/15/2019, Additional history exists COVID-19 VACCINE ( season) 2025 06/19/2021, 11/02/2020, 10/11/2020 RSV VACCINE (1 - 1-dose 75+ series) 2027 HEPATITIS A VACCINES Aged Out No long er eligible based on patient's age to complete this topic HIB VACCINES Aged Out No longer eligi ble based on patient's age to complete this topic MENINGOCOCCAL VACCINES (ACWY) Aged Out No longer eligible based on patient's age to complete this topic MENINGOCOCCAL VACCINES (B) Aged Out N o longer eligible based on patient's age to complete this topic Medical Devices Not on file Insurance MEDICARE PART A & B O MEDICARE PART A & B O MEDICARE PART A & B Member Subscriber Plan / Payer (Ef fective 2017-) Name:Sylvia Celis Member ID:[id number] Relation to Subscriber:Self Name:Sylvia Celis Subscriber ID:[id number] Payer ID:[id number] Group ID:Not on file Type:Medicare Address: [employer] [address] [place], [place] [id number] [address] MEDICARE PART A & B [facility] MEDICARE PART A & B [facility] MEDICARE PART A & B Member Subscriber Plan / Payer (Ef fective 2017-Present) Name:Sylvia Celis Member ID:[id number] Relation to Subscriber:Self Name:Sylvia Celis Subscriber ID:[id number] Payer ID:[id number] Group ID:Not on file Type:Medicare Address: [employer] [address] MEDICARE PART A & B O MEDICARE PART A & B Member Subscriber Plan / Payer (Ef fective 2017-Present) Name:Sylvia Celis Member ID:[id number] Relation to Subscriber:Self Name:Sylvia Celis Subscriber ID:[id number] Payer ID:[id number] Group ID:Not on file Type:Medicare Address: [facility] [employer] [facility] [address] HMO MEDICARE PART A & B O Care Teams Parts Representative Relationship Specialty Start Date End Date Rangel Aguilar MD [address] [place] [address] PCP - General Internal Medicine 04/30/19 Additional Source Comments The information contained in this document represents components of the legal health record. It is not the complete legal health record.[facility]
== END 2025-05-31 11:56 | disposition home or self-care (01) ==
LOC: HO.BBR 11:55
PROVIDERS: PCP Internal Medicine; Visit Provider Nurse Practitioner Adult Health
DX: Z13.89 Encounter for screening for other disorder (principal)